=== PATIENT | female | born 1995 | race Caucasian/White ===

== ENCOUNTER → 2024-02-14 | Outpatient (CLI) | payer BC ==
[2024-02-14 14:46] LABS: BASOPHILS % 0.6 % (0.0-2.0); EOSINOPHILS % 2.6 % (0.0-5.0); HEMATOCRIT. 35.7 % (36.0-48.0); HEMOGLOBIN. 11.6 g/dL (12.0-16.0); LYMPHOCYTES % 29.6 % (20.0-50.0); MEAN CORPUSCULAR HEMOGLOBIN 28.5 pg (28.0-32.0); MEAN CORPUSCULAR HGB CONC 32.4 g/dL (31.0-37.0); MEAN CORPUSCULAR VOLUME 87.9 fL (81.0-99.0); MEAN PLATELET VOLUME 7.3 fl (7.4-10.4); MONOCYTES % 5.6 % (2.0-8.0); NEUTROPHILS % 61.6 % (40.0-76.0); PLATELET 328 x1000/uL (130-400); RED BLOOD CELL COUNT 4.06 mill/uL (4.2-5.4); RED CELL DISTRIBUTION WIDTH 12.8 % (11.6-14.6); WHITE BLOOD COUNT 8.4 x1000/uL (4.5-11.0)
[2024-02-14 14:54] LABS: CHLORIDE 105 mEq/L (98-107); POTASSIUM 3.6 mEq/L (3.5-5.1); SODIUM 138 mEq/L (136-145)
[2024-02-14 14:55] LABS: CALCIUM 9.8 mg/dL (8.7-10.4); CARBON DIOXIDE 27 mEq/L (21-32)
[2024-02-14 15:00] LABS: CREATININE 0.7 mg/dL (0.6-1.0); GLUCOSE 101 mg/dL (70-105); IRON 54 ug/dL (50-170); TRIGLYCERIDE 114 mg/dL (0-150)
[2024-02-14 15:01] LABS: LDL CHOLESTEROL 121 mg/dL (5-100); UREA NITROGEN BLOOD 8 mg/dL (9-23)
[2024-02-14 15:02] LABS: ALANINE AMINOTRANSFERASE 16 IU/L (10-49); ALBUMIN 4.8 g/dL (3.2-4.8); ASPARTATE AMINOTRANSFERASE 17 IU/L (<34); CHOLESTEROL 174 mg/dL (<200); HDL CHOLESTEROL 35 mg/dL (>65)
[2024-02-14 15:03] LABS: BILIRUBIN TOTAL 0.3 mg/dL (0.1-1.0); PROTEIN TOTAL 7.9 g/dL (6.0-8.3); TOTAL IRON BINDING CAPACITY 313 ug/dl (250-425)
[2024-02-14 15:05] LABS: FOLIC ACID (FOLATE) SERUM 19.54 ng/mL (>5.38)
[2024-02-14 15:07] LABS: FERRITIN 27 ng/mL (10-291); THYROID STIMULATING HORMONE 0.58 uIU/mL (0.55-4.78)
[2024-02-14 15:17] LABS: HEPATITIS B SURFACE ANTIGEN NEGATIVE (Negative)
[2024-02-14 15:32] LABS: HIV 1/2 AB P24AG Negative (Negative)
[2024-02-14 15:38] LABS: HEPATITIS A AB IGM NEGATIVE (Negative); HEPATITIS B CORE AB IGM NEGATIVE (Negative)
[2024-02-14 15:39] LABS: HEPATITIS C AB NON REACTIVE (Neg) (Negative)
== END | disposition home or self-care (01) ==
LOC: LAB 13:52
PROVIDERS: ATTEND Internal Medicine Geriatric Medicine
DX: Z00.01 Encounter for general adult medical examination with abnormal findings (principal)
CPT/HCPCS: 36415; 80053; 80061; 82728; 82746; 83036; 83540; 83550; 84436; 84443; 84450; 85025; 86592; 86705; 86709; 87340

== ENCOUNTER → 2024-07-19 | Outpatient (CLI) | payer BC ==
[2024-07-19 08:52] LABS: BASOPHILS % 0.5 % (0.0-2.0); EOSINOPHILS % 3.5 % (0.0-5.0); HEMATOCRIT. 35.8 % (36.0-48.0); HEMOGLOBIN. 11.6 g/dL (12.0-16.0); LYMPHOCYTES % 30.8 % (20.0-50.0); MEAN CORPUSCULAR HEMOGLOBIN 27.7 pg (28.0-32.0); MEAN CORPUSCULAR HGB CONC 32.6 g/dL (31.0-37.0); MEAN CORPUSCULAR VOLUME 85.2 fL (81.0-99.0); MEAN PLATELET VOLUME 6.9 fl (7.4-10.4); NEUTROPHILS % 59.2 % (40.0-76.0); PLATELET 302 x1000/uL (130-400); RED CELL DISTRIBUTION WIDTH 13.3 % (11.6-14.6); WHITE BLOOD COUNT 8.9 x1000/uL (4.5-11.0)
[2024-07-19 09:01] LABS: CARBON DIOXIDE 27 mEq/L (21-32); CHLORIDE 104 mEq/L (98-107); POTASSIUM 4.4 mEq/L (3.5-5.1); SODIUM 138 mEq/L (136-145)
[2024-07-19 09:02] LABS: CALCIUM 9.1 mg/dL (8.7-10.4)
[2024-07-19 09:06] LABS: CREATININE 0.6 mg/dL (0.6-1.0)
[2024-07-19 09:07] LABS: GLUCOSE 95 mg/dL (70-105); LDL CHOLESTEROL 136 mg/dL (5-100); TRIGLYCERIDE 127 mg/dL (0-150); UREA NITROGEN BLOOD 8 mg/dL (9-23)
[2024-07-19 09:08] LABS: ALANINE AMINOTRANSFERASE 23 IU/L (10-49); ALBUMIN 4.1 g/dL (3.2-4.8); ASPARTATE AMINOTRANSFERASE 17 IU/L (<34)
[2024-07-19 09:09] LABS: BILIRUBIN TOTAL 0.4 mg/dL (0.1-1.0); CHOLESTEROL 204 mg/dL (<200); HDL CHOLESTEROL 35 mg/dL (>65); PROTEIN TOTAL 7.3 g/dL (6.0-8.3)
[2024-07-19 09:10] LABS: THYROID STIMULATING HORMONE 1.75 uIU/mL (0.55-4.78)
[2024-07-19 09:17] LABS: FOLIC ACID (FOLATE) SERUM > 20.00 ng/mL (>5.38)
[2024-07-19 09:19] LABS: B-HCG QUANTITATIVE < 1 mIU/mL (<3)
== END | disposition home or self-care (01) ==
LOC: LAB 08:27
PROVIDERS: ATTEND Internal Medicine Geriatric Medicine
DX: R53.82 Chronic fatigue, unspecified (principal); O02.81 Inappropriate change in quantitative human chorionic gonadotropin (hCG) in early pregnancy; E66.3 Overweight
CPT/HCPCS: 36415; 80053; 80061; 82746; 83036; 84439; 84443; 84702; 85025

== ENCOUNTER → 2025-02-04 | Outpatient (CLI) | payer BC ==
[2025-02-04 18:31] LABS: BASOPHILS % 0.6 % (0.0-2.0); EOSINOPHILS % 2.6 % (0.0-5.0); HEMATOCRIT. 36.2 % (36.0-48.0); HEMOGLOBIN. 11.9 g/dL (12.0-16.0); LYMPHOCYTES % 32.1 % (20.0-50.0); MEAN PLATELET VOLUME 7.2 fl (7.4-10.4); MONOCYTES % 7.4 % (2.0-8.0); NEUTROPHILS % 57.3 % (40.0-76.0); PLATELET 339 x1000/uL (130-400); RED BLOOD CELL COUNT 4.26 mill/uL (4.2-5.4); RED CELL DISTRIBUTION WIDTH 13.0 % (11.6-14.6)
[2025-02-04 18:41] LABS: HCG SCREEN NEGATIVE
[2025-02-04 18:44] LABS: CREATININE 0.6 mg/dL (0.6-1.0)
[2025-02-04 18:45] LABS: LDL CHOLESTEROL 137 mg/dL (5-100); TRIGLYCERIDE 107 mg/dL (0-150); UREA NITROGEN BLOOD 7 mg/dL (9-23)
[2025-02-04 18:46] LABS: ASPARTATE AMINOTRANSFERASE 18 IU/L (<34)
[2025-02-04 18:47] LABS: BILIRUBIN TOTAL 0.4 mg/dL (0.1-1.0); PROTEIN TOTAL 7.7 g/dL (6.0-8.3)
[2025-02-04 19:21] LABS: ERYTHROCYTE SEDIMENTATION RATE 34 mm/hr (0-20)
== END | disposition home or self-care (01) ==
LOC: LAB 16:10
PROVIDERS: ATTEND Internal Medicine Geriatric Medicine
DX: N91.2 Amenorrhea, unspecified (principal); D64.9 Anemia, unspecified
CPT/HCPCS: 36415; 80053; 80061; 82728; 83036; 83540; 84443; 84703; 85025; 85651